=== PATIENT | female | born 2005 | race Two or more races ===

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

== ENCOUNTER 2023-01-24 23:13 | Emergency (ER) | payer OTHER ==
[~2023-01-24] VITALS: Ht 170.2 cm; Wt 43.2 kg
[2023-01-25] MEDS ORDERED: POVIDONE IODINE 10 % TOPICAL OINT 30GM TOP ONE (03:00)
[2023-01-25] MEDS ORDERED: TETANUS-DIPTH-ACEL PERTUSSIS 0.5ML SYR Tdap IM ONE (03:00)
[2023-01-25] MEDS ORDERED: AMOX500T86 PO (03:19)
[2023-01-25 03:45] VITALS: BP 107/70
== END 2023-01-25 03:53 | disposition home or self-care (01) ==
LOC: ER 23:13
DX: S61.052A Open bite of left thumb without damage to nail, initial encounter (principal); W54.0XXA Bitten by dog, initial encounter; Y93.89 Activity, other specified; Y92.89 Other specified places as the place of occurrence of the external cause; Y99.8 Other external cause status
CPT/HCPCS: 90471; 90715